=== PATIENT | male | born 1980 | race Caucasian/White ===

== ENCOUNTER 2020-09-24 11:31 | Inpatient (IN) | payer MEDICAID, OTHER, SELFPAY ==
[~2020-09-24] VITALS: Ht 175.3 cm; Wt 64.9 kg
[2020-09-24 11:32] VITALS: BP_SYST 126
--- NOTE | 2020-09-24 11:32 | NUR ---
Placed in room 06 . Placed on desk monitor, blood pressure machine and pulse oximeter. To gown for exam. Side rails up.
--- NOTE | 2020-09-24 11:35 | NUR ---
SPOKE WITH STAFF AT [facility] AND THEY COULD NOT GIVE ANY INFORMATON PERTAINING TO PTS HISTORY, DID NOT KNOW WHY PT WAS TRANSFERRED HERE. 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 ACCORDING TO BENTLEY AT [facility], PT IS NOT ACCEPTED THERE DUE TO PT HAVING A VELAZQUEZ CATHETER. CALLED BACK TO PREMA AT [facility] AND SHE STATES THAT PT DOES NOT HAVE A VELAZQUEZ, PT ARRIVED WITH VELAZQUEZ CATHETER. ALL INFORMATION SHARED WITH DR HARDY AND AWAITING CALL BACK FROM PREMA.
--- NOTE | 2020-09-24 11:45 | NUR ---
Patient presents to ER in an unclear situation. biofuels production associate attempting to speak with care facility who transferred him. Patient is irritable and not answering questions. Refusing to take clothes off and speaking "in tongues" randomly shouting words in no understandable language. Patient noted to have a flattened scrotum and a workman catheter tied in a knot without a bag. Also noted to have several wounds on BLE and soiled dressings. Ostomy pink but open to air with no bag and small feces falling out of clothing when transfered to bed. EB=[id number]. MD to assess momentarily.
--- NOTE | 2020-09-24 11:46 | NUR ---
ER at bedside examining patient.
[2020-09-24] MEDS ORDERED: cefTRIAXone 1 GM in D5W 50 ML IV ONE (12:15)
[2020-09-24] MEDS ORDERED: NACL 0.9% 1,000 ML IV ONE ×4 (12:15→13:15)
--- NOTE | 2020-09-24 12:20 | NUR ---
Labs drawn via PICC line on LUE including blood cultures. Urine specimen obtained after untied workman and placing a bag.
[2020-09-24] MEDS ORDERED: cefTRIAXone 1 GM VIAL ONE (12:24)
[2020-09-24 12:31] LABS: BILIRUBIN,URINE NEGATIVE (NEGATIVE); BLOOD, URINE 2+ (NEGATIVE); CLARITY/URINE CLOUDY (CLEAR); COLOR,URINE YELLOW (YELLOW); GLUCOSE,URINE NEGATIVE (NEGATIVE); KETONES,URINE 1+ (NEGATIVE); LEUKOCYTE ESTERASE ,URINE 2+ (NEGATIVE); NITRITE, URINE POSITIVE (NEGATIVE); PROTEIN URINE 2+ (NEGATIVE); UROBILINOGEN,URINE 0.2 (0.2-1.0)
[2020-09-24 12:31] LABS: BASOPHILS # (AUTO) 0.1 K/uL (0.0-0.2); BASOPHILS % (AUTO) 0.6 % (0.0-2.0); EOSINOPHILS # (AUTO) 0.1 K/uL (0.0-0.4); EOSINOPHILS % (AUTO) 0.7 % (0.0-4.0); HEMOGLOBIN 11.1 g/dL (14.0-18.0); LYMPHOCYTES # (AUTO) 1.3 K/uL (1.0-5.5); LYMPHOCYTES % (AUTO) 10.4 % (20.5-51.5); MEAN CORPUSCULAR HEMOGLOBIN 26 pg (27-31); MEAN CORPUSCULAR HGB CONC 33 % (32-36); MEAN CORPUSCULAR VOLUME 81 fL (79.0-98.0); MONOCYTES % (AUTO) 7.8 % (1.7-9.3); NEUTROPHILS # (AUTO) 10.1 K/uL (1.8-7.7); NEUTROPHILS % (AUTO) 80.5 % (40.0-70.0); PLATELET COUNT (AUTO) 477 K/uL (130-430); RED BLOOD CELL COUNT(AUTO) 4.22 MIL/uL (4.2-6.2); WHITE BLOOD COUNT (AUTO) 12.5 K/uL (4.8-10.8)
[2020-09-24 12:39] LABS: CALCIUM 8.5 mg/dL (8.4-11.0); CREATININE 0.7 mg/dL (0.55-1.30); POTASSIUM 3.7 mmol/L (3.5-5.1)
[2020-09-24 12:44] LABS: BACTERIA,URINE MANY /HPF (None Seen)
[2020-09-24 12:45] LABS: ALBUMIN 2.9 g/dL (3.4-4.8); TOTAL BILIRUBIN 0.3 mg/dL (0.0-1.0)
[2020-09-24 12:45] LABS: TRIPLE PHOSPHATE CRYSTAL,UR 0-10 /HPF (None Seen); WBC,URINE >100 /HPF (0-3)
[2020-09-24 12:47] LABS: BARBITURATE, URINE NEGATIVE (NEG <=200); BENZODIAZEPINE, URINE POSITIVE (NEG <=150); CANNABINOID, URINE POSITIVE (NEG <=50); COCAINE, URINE NEGATIVE (NEG <=150); METHAMPHETAMINES SCREEN,URINE NEGATIVE (NEG <=500); OPIATE, URINE POSITIVE (NEG <=100); PHENCYCLIDINE SCREEN,URINE NEGATIVE (NEG <=25); UR TRICYCLIC ANTIDEPRESSANTS NEGATIVE (NEG <=300); URINE AMPHETAMINE NEGATIVE (NEG <=500); URINE METHADONE NEGATIVE (NEG <=200); URINE OXYCODONE SCREEN NEGATIVE (NEG <=100); URINE PROPOXYPHENE SCREEN NEGATIVE (NEG <=300)
[2020-09-24] MEDS ORDERED: ONDANSETRON HCL 4 MG/2 ML VIAL ONE (13:18)
[2020-09-24] MEDS ORDERED: ONDANSETRON HCL 4 MG/2 ML VIAL IVP ONE (13:30)
[2020-09-24] MEDS ORDERED: HALOPERIDOL LACTATE 5 MG/ML VIAL IVP ONE (13:45)
--- NOTE | 2020-09-24 13:45 | NUR ---
Pt resting in [facility] at this time, no distress, refusing COVID swab at this time
--- NOTE | 2020-09-24 15:48 | NUR ---
Telemetry unit called and stated Line Haul Driver said to have ER hold the pt until cocktail lounge manager due to need to call in an extra nurse. Stating it would take too long to call in the surety bond agent nurse, and to keep pt in ER until change of shift.
--- NOTE | 2020-09-24 16:17 | NUR ---
Pt told he is NPO per MD order, found to be eating an orange he brought from home in [facility]
--- NOTE | 2020-09-24 17:10 | NUR ---
Patient will be admitted to care of Yadira. Admitted to Tele unit. Will go to room 126. Belongings list completed. Complete and up to date summary report printed. SBAR report to be given at bedside with opportunity for questions.
--- NOTE | 2020-09-24 17:25 | NUR ---
CONSULTATION PAGED REASON FOR CONSULTATION:PSYCHOSIS WAS CONSULT CALLED?Y PERSON WHO WAS NOTIFIED:MEEK CONSULTING PHYSICIAN:ROBIN CASTILLO TRANSITION LEAD SPECIALTY:PSYCH TRANSITION LEAD PHONE NUMBER:[phone] REQUESTING PHYSICIAN:RYAN BERNARDO
[2020-09-24] MEDS ORDERED: ACETAMINOPHEN 325 MG TABLET PO PRN (17:30)
[2020-09-24] MEDS ORDERED: ONDANSETRON HCL 4 MG/2 ML VIAL IVP PRN (17:30)
[2020-09-24] MEDS ORDERED: METOCLOPRAMIDE HCL 10 MG/2 ML VIAL IVP PRN (17:30)
--- NOTE | 2020-09-24 17:35 | NUR ---
receeived pt from, er. for pyelonepritis and acute psychosis under dr harman. pt is aao. vitals wnl, no fever. Addendum: 09/24/20 at 1953 by Itz Medellin RN NOTED THAT PT CAME IN WITH VELAZQUEZ CATH AND LEFT UPPER ARM PICC ( PER REPORT FROM ER, PT HAS BOTH WHEN RECEIVED IN E.R.)
[2020-09-24] MEDS ORDERED: PIPERACILLIN/TAZO 3.375/DEX-IS 50 ML IV SCH (18:00)
[2020-09-24] MEDS: MORPHINE 4 MG/ML INJ. SYRINGE IVP PRN (18:32)
[2020-09-24] MEDS: D5NS 1,000 ML IV SCH (18:39)
--- NOTE | 2020-09-24 19:40 | NUR ---
initial notes: pt is awake, alert, oriented x2. not distress, no complain of pain at this time, stable vital sign. pt has picc line to left upper arm- dressing is intact, due for change. pt has multiple abdominal scar. pt has left lower colostomy- stoma is pink. workman catheter draining to cloud yellow urine. pt has multiple wound to buttocks and both lower extremities. limited photo taken due pt is uncooperative to turn. needs attended, call light in reach. side rails up. low bed position. bed alarm on. bed lock. will follow-up
--- NOTE | 2020-09-24 19:47 | NUR ---
PT ENDORSED TO NIGHT RN BLAS. ENDORSED THAT THIS RN SPOKE TO PT'S [facility] AND REQUESTED THEM TO FAX TO US PT'S MEDICAL RECORDS AND MEDICATION LIST. ALSO ENDORSED THAT PT HAS NOT BEEN ADMITTED.
[2020-09-24 20:33] VITALS: BP_SYST 98
--- NOTE | 2020-09-24 21:07 | NUR ---
pt is refusing covid rapid test and mrsa nares swab. explain the importance.pt still refused.
--- NOTE | 2020-09-24 22:26 | NUR ---
call dr. johnson covering for dr. harman. inform md pt had an allergy to PCN, and they held the zosyn, but ER gave pt 1 gm of rocephine. no sign of allergic reaction. md order rocephine 1 gm every 12 hr starting tomorrow am. Addendum: 09/24/20 at 2229 by Edwin Saleh RN md discontinue zosyn.
[2020-09-24] MEDS: MORPHINE 2 MG/ML INJ. SYRINGE IVP PRN (22:39)
--- NOTE | 2020-09-24 23:15 | NUR ---
picc line dressing change done. pt tolerate well.
--- NOTE | 2020-09-25 00:30 | NUR ---
sleeping, comfortable. stable vital sign, no pain, not distress, safety precaution in place.
[2020-09-25 01:56] VITALS: BP_SYST 107
[2020-09-25] MEDS ORDERED: ONDA4TAB5 PO (02:03)
[2020-09-25] MEDS ORDERED: LORA-259 PO (02:03)
[2020-09-25] MEDS ORDERED: PERC10 PO (02:03)
[2020-09-25] MEDS ORDERED: DOCU-156 PO (02:03)
[2020-09-25] MEDS ORDERED: DIPH25CA83 PO (02:03)
[2020-09-25] MEDS ORDERED: APIX5TAB4 PO (02:03)
[2020-09-25] MEDS ORDERED: PARO-63 PO (02:03)
[2020-09-25] MEDS ORDERED: FAMO40TA7 PO (02:03)
[2020-09-25] MEDS: D5NS 1,000 ML IV SCH ×3 (03:15→22:42)
[2020-09-25] MEDS: MORPHINE 2 MG/ML INJ. SYRINGE IVP PRN (03:34)
--- NOTE | 2020-09-25 06:52 | NUR ---
closing: pt is sleeping, comfortable, no sign of distress, no sob, stable. ivf infusing well. needs attended the whole shift. call light with the pt. side rails up. low bed position. bed alarm on. will give sbar reporting to am rn.
--- NOTE | 2020-09-25 07:10 | NUR ---
opening note Received sbar from night RN, patient in bed, respirations even, non labored, bed in low and locked position call light within reach,
--- NOTE | 2020-09-25 07:31 | NUR ---
Nutrition Update Tarun Scale 17 noted. Pt admitted for Pyelonephritis, Acute Psychosis Diet: Regular BMI: 21.1 kg/m2 RD to follow per nutrition care standards.
[2020-09-25 08:00] VITALS: BP_SYST 114
--- NOTE | 2020-09-25 08:10 | NUR ---
nurse note patient becoming agitated, yelling, threatening to leave, stating that he needs his pain medication, calmed patient down, obtained vs,
[2020-09-25] MEDS: MORPHINE 4 MG/ML INJ. SYRINGE IVP PRN ×4 (08:45→21:14)
--- NOTE | 2020-09-25 11:02 | NUR ---
rounds Dr May bedside examining patient
[2020-09-25] MEDS ORDERED: ONDANSETRON 4 MG ODT TAB PO PRN (11:15)
--- NOTE | 2020-09-25 11:16 | NUR ---
CONSULTATION PAGED/CALLED Reason for Consultation: [] UTI Person Who was Notified: [] [place] Consulting Physician: [] DR FRANCO Ncqa Specialist Specialty: [] ID Ordering Physician: [] DR ERICKSON
--- NOTE | 2020-09-25 11:23 | NUR ---
ct scan patient off floor via wheel chair for ct scan
[2020-09-25] MEDS ORDERED: APIXABAN 2.5 MG TABLET PO ONE (11:30)
[2020-09-25] MEDS ORDERED: PARoxetine HCL 20 MG TABLET PO ONE (11:30)
[2020-09-25] MEDS: cefTRIAXone 1 GM in D5W 50 ML IV SCH ×2 (12:09→23:22)
[2020-09-25] MEDS ORDERED: APIXABAN 2.5 MG TABLET ONE (12:09)
--- NOTE | 2020-09-25 12:10 | NUR ---
nurse note patient requesting pain medication, 02/12.
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
--- NOTE | 2020-09-25 12:31 | NUR ---
wound care wound care provided see mst shift assessment Addendum: 09/25/20 at 1517 by Graham Aponte RN wound care with KENTON Stein, measurements taken
[2020-09-25 12:36] VITALS: BP_SYST 141
--- NOTE | 2020-09-25 12:37 | NUR ---
md rounds dr Sanchez bedside examining patient
[2020-09-25] MEDS ORDERED: QUEtiapine FUMARATE 25 MG TABLET PO ONE (14:00)
[2020-09-25] MEDS ORDERED: HALOPERIDOL LACTATE 5 MG/ML VIAL IM PRN (14:00)
[2020-09-25] MEDS ORDERED: NICOTINE 21 MG/24 HR PATCH.TD24 TD ONE (14:00)
--- NOTE | 2020-09-25 14:30 | NUR ---
nurse note patient complaining of anxiety, feels jumpy and irritable, provided medication
[2020-09-25] MEDS: LORazepam 1 MG TABLET PO PRN (14:39)
[2020-09-25] MEDS: VANCOMYCIN HCL 750 MG in NS 250 ML IV SCH ×3 (14:40→21:03)
--- NOTE | 2020-09-25 14:40 | NUR ---
nurse note administering medications, patient refuses to take vancomycin with out benadryl ivp, paged Dr. Sanchez to inform him
--- NOTE | 2020-09-25 15:13 | NUR ---
2ND CALL TO ID MD DR FRANCO, RE: PT REFUSES VANCO WITHOUT GETTING BENADRYL WITH IT. SPOKE TO [place]
--- NOTE | 2020-09-25 15:44 | NUR ---
Patient stated he wants to go home to [place], [place], where he rents a room. He asked me to call his brother Eric Chavez concerning this plan. Spoke w/ patient's brother-he stated the patient cannot care for himself and he could not come home to [place] because he could not help take care of him. He requested the patient return to a SNF when medically stable.
[2020-09-25 16:08] VITALS: BP_SYST 150
[2020-09-25] MEDS ORDERED: DIPHENHYDRAMINE INJ 50 MG/ML VIAL IVP ONE (16:30)
--- NOTE | 2020-09-25 16:40 | NUR ---
nurse note entered patients room, patient sitting in wheel chair, workman removed and lying on floor, blood on floor, patient states he does not know what happened. informed charge entry clerk of incident and she went to room to assess patient
--- NOTE | 2020-09-25 17:15 | NUR ---
VELAZQUEZ CATH: # 16 FR Velazquez catheter with 10cc bulb inserted with use of sterile technique. Bulb inflated with 10 cc sterile water. Immediate return of urine noted. Bedside drainage bag placed below level of bladder. Pt tolerated procedure well.
--- NOTE | 2020-09-25 17:20 | NUR ---
nurse note ostomy bag became detached, replaced with new bag, patient tolerated well
--- NOTE | 2020-09-25 17:45 | NUR ---
nurse note provided wound care to left foot and leg, and right foot, patient refused any further wound care treatment done
--- NOTE | 2020-09-25 18:10 | NUR ---
picc line stopped ivf's iv is leaking. no signs of infiltration, patient states no pain to the area
--- NOTE | 2020-09-25 19:15 | NUR ---
OPENING NOTE RECEIVED CARE OF PT AND SBAR REPORT. PT IS IN WHEELCHAIR AT NURSES STATION. BREATHING IS UNLABORED TO ROOM AIR, NO S/S OF ACUTE DISTRESS NOTED. PLAN OF CARE DISCUSSED WITH PT. SAFETY MAINTAINED. WILL MONITOR.
--- NOTE | 2020-09-25 19:15 | NUR ---
closing note Provided SBR to night RN, patient wheel chair, respirations even, non labored, endorsed IV Vanco to night RN in addition to wound care that patient refused. Informed RN that IV is leaking. endorsed care to night RN
[2020-09-25] MEDS: OXYCODONE/ACETAMINOPHEN *10*mg/325 mg TABLET PO PRN ×2 (19:26→23:43)
[2020-09-25 20:00] VITALS: BP_SYST 148
[2020-09-25] MEDS: DIPHENHYDRAMINE INJ 50 MG/ML VIAL IVP SCH (21:03)
[2020-09-25] MEDS: QUEtiapine FUMARATE 25 MG TABLET PO SCH (21:03)
[2020-09-25] MEDS: FAMOTIDINE 20 MG TABLET PO SCH (21:03)
[2020-09-25] MEDS: APIXABAN 2.5 MG TABLET PO SCH (21:15)
--- NOTE | 2020-09-26 | NUR ---
RN ROUNDS: Patient is laying in bed and appears to be asleep. He is not exhibiting any s/s of distress or discomfort. Will continue to monitor. Addendum: 09/27/20 at 0300 by Renata Rose RN ADDENDUM TO DATE/ACCIDENTALLY CHANGED DATE. TRUE DATE IS 09/27/2020
[2020-09-26 00:12] VITALS: BP_SYST 109
[2020-09-26] MEDS: MORPHINE 4 MG/ML INJ. SYRINGE IVP PRN ×4 (01:54→15:24)
[2020-09-26] MEDS: DIPHENHYDRAMINE INJ 50 MG/ML VIAL IVP SCH ×3 (05:55→23:12)
[2020-09-26] MEDS: VANCOMYCIN HCL 750 MG in NS 250 ML IV SCH (05:56)
--- NOTE | 2020-09-26 06:33 | NUR ---
CLOSING NOTE PT IS RESTING IN BED, NO S/S OF ACUTE DISTRESS NOTED, IV VANCOMYCIN IS INFUSING ORDERED TO PICC LINE. THROUGHOUT SHIFT PATIENT HAS BEEN DISCONNECTING HIMSELF FROM THE IV DESPITE EDUCATION AND REDIRECTION. PATIENT MEDICATED FOR PAIN THROUGHOUT SHIFT. BREATHING IS UNLABORED TO ROOM AIR. VELAZQUEZ CATHETER IS INTACT AND DRAINING TO GRAVITY. SAFETY PRECAUTIONS MAINTAINED. BED IS LOCKED AT THE LOWEST LEVEL. CALL LIGHT IS WITH PT. WILL CONTINUE TO MONITOR UNTIL PT CARE IS ENDORSED TO DAY SHIFT RN.
--- NOTE | 2020-09-26 07:40 | NUR ---
OPENING NOTES: RECEIVED REPORT FROM BLOCKING MACHINE OPERATOR NURSE. PATIENT IS AWAKE, ALERT LAYING DOWN IN BED. PATIENT IS TOLERATING OXYGEN ON ROOM AIR WITH NO DISTRESS NOTED. IV LINE PATENT AND INTACT WITH NO INFILTRATION NOTED. PATIENT IN STABLE CONDITION. SAFETY, FALL, AND ASPIRATION PRECAUTIONS ARE IN PLACE. BED LOCKED IN LOWEST POSITION AND CALL LIGHT IN REACH. WILL CONTINUE TO MONITOR PATIENT FOR ANY CHANGES.
[2020-09-26 08:00] VITALS: BP_SYST 122
--- NOTE | 2020-09-26 08:00 | NUR ---
PATIENT NON-COMPLIANT WITH CARE WHILE DOING ROUNDS. FOOD TRAY IS ON THE FLOOR DOES NOT WANT TO BE HELP AND MAD IF TRYING TO HELP HIM. DISCONNECT HIS IV, EXPLAINED TO HIM THE IMPORTANCE AND THE INFECTION ISSUE, VERBALIZED UNDERSTANDING.
[2020-09-26] MEDS: NICOTINE 21 MG/24 HR PATCH.TD24 TD SCH (09:14)
[2020-09-26] MEDS: QUEtiapine FUMARATE 25 MG TABLET PO SCH ×2 (09:15→20:55)
[2020-09-26] MEDS: PARoxetine HCL 20 MG TABLET PO SCH (09:15)
[2020-09-26] MEDS: APIXABAN 2.5 MG TABLET PO SCH ×2 (09:20→20:54)
[2020-09-26] MEDS: D5NS 1,000 ML IV SCH ×2 (09:30→19:30)
--- NOTE | 2020-09-26 11:03 | NUR ---
CONSULTATION PAGED/CALLED Reason for Consultation: debridement Person Who was Notified: Chanelle Consulting Physician: Omega Buchanan Yolk Spray Drier Specialty: Ordering Physician: Hali May
[2020-09-26] MEDS: cefTRIAXone 1 GM in D5W 50 ML IV SCH (12:00)
--- NOTE | 2020-09-26 12:03 | NUR ---
PATIENT REFUSED IV ANTIBIOTIC MEDICATION. EXPLAINED THE RISK AND BENEFITS. VERBALIZED UNDERSTANDING.
--- NOTE | 2020-09-26 12:04 | NUR ---
Dietitian Recommendations *Recommend: double portions of meat and vegetables, add Farrukh BID. Modular will provide additional 192 Kcal and 5gm protein daily. *Recommend: continue regular diet. Please see Nutritional Assessment for details THOMAS PALACIOS
--- NOTE | 2020-09-26 12:20 | NUR ---
RECEIVED A CALL FROM PATIENT'S BROTHER (LETTY) AND WANTS TO TALK TO THE PATIENT. RELAY THE MESSAGE TO THE PATIENT AND TOLD ME THAT HE WILL CALL HIS BROTHER LATER.
[2020-09-26 12:26] VITALS: BP_SYST 146
[2020-09-26 13:41] LABS: ALBUMIN 2.6 g/dL (3.4-4.8); CALCIUM 7.8 mg/dL (8.4-11.0); CREATININE 0.62 mg/dL (0.55-1.30); POTASSIUM 3.6 mmol/L (3.5-5.1); TOTAL BILIRUBIN 0.2 mg/dL (0.0-1.0)
[2020-09-26] MEDS: VANCOMYCIN HCL 1.25 GM/NS 250 ML IV SCH ×2 (15:28→23:13)
--- NOTE | 2020-09-26 15:51 | NUR ---
RECEIVED A CALL FROM LAB REGARDING PATIENT'S URINE CULTURE POSITIVE OF E.COLI (MDRO URINE).
[2020-09-26] MEDS: LORazepam 1 MG TABLET PO PRN (16:05)
[2020-09-26 16:06] VITALS: BP_SYST 123
--- NOTE | 2020-09-26 18:37 | NUR ---
CLOSING NOTES: PATIENT IS AWAKE, ALERT LAYING DOWN IN BED. PATIENT IS TOLERATING OXYGEN ON ROOM AIR WITH NO DISTRESS NOTED. IV LINE PATENT AND INTACT WITH NO INFILTRATION NOTED. COLOSTOMY BAG INTACT. PATIENT IN STABLE CONDITION. SAFETY, FALL, AND ASPIRATION PRECAUTIONS REMAINED IN PLACE. BED LOCKED IN LOWEST POSITION AND CALL LIGHT IN REACH. WILL ENDORSE PATIENT CARE TO ONCOMING STAFF PHYSICIAN NURSE.
--- NOTE | 2020-09-26 19:30 | NUR ---
OPENING NOTES: Received report from dayshift nurse. Patient is laying in bed, awake and alert with no s/s of distress or discomfort. He is on room air, tolerating well. PICC line noted on left upper arm with dry and intact dressing. Patient has kerlix on bilateral lower extremities. Crespo catheter draining to gravity with no urine output at this time. Colostomy noted on left abdomen. Ensured all safety precautions. Bed is locked and in the lowest position, call light within reach.
[2020-09-26 20:00] VITALS: BP_SYST 137
--- NOTE | 2020-09-26 20:50 | NUR ---
MEDICATION ADMINISTRATION: Patient is sitting in wheel chair with no s/s of distress or discomfort. He requested Morphine for bilateral foot pain 12/13. Medications were administered as ordered by MD. Patient tolerated well.
[2020-09-26] MEDS: FAMOTIDINE 20 MG TABLET PO SCH (20:54)
--- NOTE | 2020-09-26 21:00 | NUR ---
PATIENT REFUSED IV FLUIDS AND SEROQUEL
[2020-09-26] MEDS: MORPHINE 2 MG/ML INJ. SYRINGE IVP PRN (21:04)
--- NOTE | 2020-09-26 23:00 | NUR ---
PATIENT DECLINED WOUND CARE Despite education, pt declined woundcare. States he does not want to have it done.
[2020-09-27] VITALS: BP_SYST 125
--- NOTE | 2020-09-27 | NUR ---
RN ROUNDS: Patient is laying in bed and appears to be asleep. He is not exhibiting any s/s of distress or discomfort. Will continue to monitor.
[2020-09-27] MEDS: cefTRIAXone 1 GM in D5W 50 ML IV SCH ×2 (01:13→12:27)
--- NOTE | 2020-09-27 03:01 | NUR ---
RN ROUNDS: Patient is laying in bed with no s/s of distress or discomfort. Will continue to monitor.
[2020-09-27] MEDS: D5NS 1,000 ML IV SCH ×2 (06:44→15:30)
[2020-09-27] MEDS: VANCOMYCIN HCL 1.25 GM/NS 250 ML IV SCH ×3 (06:45→22:58)
[2020-09-27] MEDS: DIPHENHYDRAMINE INJ 50 MG/ML VIAL IVP SCH ×3 (06:45→22:56)
[2020-09-27] MEDS: MORPHINE 2 MG/ML INJ. SYRINGE IVP PRN (06:47)
--- NOTE | 2020-09-27 07:35 | NUR ---
CLOSING NOTES: Patient is laying in bed, awake and alert with no s/s of distress or discomfort. He is on room air, tolerating well. PICC on left upper arm patent and intact. Patient refused wound care throughout shift. Crespo catheter draining to gravity with yellow, clear urine. Colostomy left abdomen which patient refused to let me empty, he stated he does it himself. Patient transfers to wheel chair without assistance and was found in wheel chair several times throughout shift. Ensured all safety precautions. Bed is locked and in the lowest position, call light within reach. All needs were met throughout shift. I have endorse care to dayshift nurse.
[2020-09-27 08:00] VITALS: BP_SYST 131
[2020-09-27] MEDS: QUEtiapine FUMARATE 25 MG TABLET PO SCH ×2 (08:20→22:55)
[2020-09-27] MEDS: PARoxetine HCL 20 MG TABLET PO SCH (08:20)
[2020-09-27] MEDS: OXYCODONE/ACETAMINOPHEN *10*mg/325 mg TABLET PO PRN ×2 (08:21→12:26)
[2020-09-27] MEDS: APIXABAN 2.5 MG TABLET PO SCH ×2 (08:28→20:59)
--- NOTE | 2020-09-27 12:18 | NUR ---
Discharge Planning: DCP faxed pt referral to [facility] ([phone]) DCP to follow mup. Addendum: 09/27/20 at 1409 by Lorene Fierro DP DCP followed up with Figueroa at [facility] ([phone]) patients isolation is an issue, patient room with 3 other residents. Figueroa will speak to DON to find a room. DCP will follow up
[2020-09-27] MEDS: NICOTINE 21 MG/24 HR PATCH.TD24 TD SCH (12:43)
[2020-09-27 12:47] VITALS: BP_SYST 98
[2020-09-27] MEDS: MORPHINE 4 MG/ML INJ. SYRINGE IVP PRN ×2 (15:26→20:58)
[2020-09-27 16:00] VITALS: BP_SYST 133
--- NOTE | 2020-09-27 16:30 | NUR ---
Spoke w/ [facility] extended Care-they will not have an isolation bed for the patient until tomorrow. I notified the patient he will be discharged tomorrow, he agreed to the DC plan.
--- NOTE | 2020-09-27 19:45 | NUR ---
OPENING NOTE Received patient awake, sitting on his wheel chair infront of the board/wall. He is AOX2, knows name and partial (forgot year). His bed has two meal trays on it and he said don't touch, leave them there he will eat his food. Crespo catheter drainage bag is hanging to gravity on side of chair; the clip is bent it isn't locked. There are puddles of urine throughout the room.
[2020-09-27 20:15] VITALS: BP_SYST 138
--- NOTE | 2020-09-27 20:58 | NUR ---
Pain med Patient is reporting generalized pain; 10/10 and Morphine 4mg given.
[2020-09-27] MEDS: FAMOTIDINE 20 MG TABLET PO SCH (20:59)
[2020-09-27 21:01] LABS: ALBUMIN 3.2 g/dL (3.4-4.8); CALCIUM 8.8 mg/dL (8.4-11.0); CREATININE 0.7 mg/dL (0.55-1.30); POTASSIUM 4.1 mmol/L (3.5-5.1); TOTAL BILIRUBIN 0.3 mg/dL (0.0-1.0)
[2020-09-27 21:22] LABS: MEAN CORPUSCULAR HEMOGLOBIN 27 pg (27-31); MEAN CORPUSCULAR HGB CONC 32 % (32-36); MEAN CORPUSCULAR VOLUME 82 fL (79.0-98.0); WHITE BLOOD COUNT (AUTO) 9.6 K/uL (4.8-10.8)
[2020-09-27 21:28] LABS: BASOPHILS # (AUTO) 0.1 K/uL (0.0-0.2); BASOPHILS % (AUTO) 0.6 % (0.0-2.0); EOSINOPHILS # (AUTO) 0.1 K/uL (0.0-0.4); EOSINOPHILS % (AUTO) 1.4 % (0.0-4.0); HEMATOCRIT 35.3 % (36-54); HEMOGLOBIN 11.4 g/dL (14.0-18.0); LYMPHOCYTES # (AUTO) 1.3 K/uL (1.0-5.5); LYMPHOCYTES % (AUTO) 13.6 % (20.5-51.5); MONOCYTES # (AUTO) 0.8 K/uL (0.0-1.0); MONOCYTES % (AUTO) 8.7 % (1.7-9.3); NEUTROPHILS # (AUTO) 7.3 K/uL (1.8-7.7); NEUTROPHILS % (AUTO) 75.7 % (40.0-70.0); PLATELET COUNT (AUTO) 360 K/uL (130-430); RED BLOOD CELL COUNT(AUTO) 4.29 MIL/uL (4.2-6.2); RED CELL DISTRIBUTION WIDTH 15.7 % (9.0-15.0)
--- NOTE | 2020-09-27 22:58 | NUR ---
[place] Patient is wandering all over room and at times tries to go in hallway and he is sent back in room; He has refused IVF. I informed he needs antibiotic and I will need to connect IV and he agreed, but wants to take machine by the door, so he can see hallway.
[2020-09-28] MEDS: cefTRIAXone 1 GM in D5W 50 ML IV SCH ×2 (00:59→11:47)
[2020-09-28] MEDS: MORPHINE 2 MG/ML INJ. SYRINGE IVP PRN ×2 (01:06→11:12)
--- NOTE | 2020-09-28 01:13 | NUR ---
Pain med, antibiotic Patient was sitting on wheel chair in his room next to door way. No distress, non labored breathing and no facial grimacing. Rocephin due and administered, he was cooperative. He requested Morphine for pain, generalized and morphine for moderate pain given. WCTM.
[2020-09-28] MEDS: D5NS 1,000 ML IV SCH ×2 (01:30→11:12)
[2020-09-28] MEDS: LORazepam 1 MG TABLET PO PRN ×2 (01:45→12:45)
--- NOTE | 2020-09-28 01:46 | NUR ---
Ativan Patient is sitting on his wheelchair by the door. He got restless, threw a fork across the hallway. He pulled on IV, rolled/tangled tubing in hand and said he wants Benadry. I informed not due yet and then he said wants pain med, I formed he already received it and he replied I don't know how to tell time. He said I need my med... I told him I got Ativan, an he immediately said yes, he will have ativan.
--- NOTE | 2020-09-28 02:29 | NUR ---
Pulled out call light from wall Cord out alarm set off. Patient pulled out two call light cords, I entered room and he said he was fixing the electrical system. I asked not to touch the cords, he did not let me get the cords, he insisted he'll get it. I watched him and outlets were safely plugged in correct outlet.
--- NOTE | 2020-09-28 06:00 | NUR ---
resting in bed resting quietly in bed, no distress, symmetrical rise and fall of chest
[2020-09-28] MEDS: DIPHENHYDRAMINE INJ 50 MG/ML VIAL IVP SCH ×2 (06:53→14:00)
[2020-09-28] MEDS: MORPHINE 4 MG/ML INJ. SYRINGE IVP PRN (06:55)
--- NOTE | 2020-09-28 06:55 | NUR ---
meds Unable to give Vanco; it is not available. Administered benadryl and morphine; Midline leaks; pushed med slowly to avoid loss of med/NS. Will endorse care.
[2020-09-28] MEDS: NICOTINE 21 MG/24 HR PATCH.TD24 TD SCH (09:00)
[2020-09-28] MEDS: APIXABAN 2.5 MG TABLET PO SCH (09:00)
[2020-09-28] MEDS: QUEtiapine FUMARATE 25 MG TABLET PO SCH (09:00)
[2020-09-28] MEDS: PARoxetine HCL 20 MG TABLET PO SCH (09:00)
[2020-09-28] MEDS: VANCOMYCIN HCL 1.25 GM/NS 250 ML IV SCH ×2 (09:23→15:00)
--- NOTE | 2020-09-28 11:15 | NUR ---
Note Pt refused to let RN empty colostomy bag, stated that he (pt) would empty colostomy himself.
--- NOTE | 2020-09-28 12:15 | NUR ---
Discharge Planning: DCP followed up with Rashi at [facility] ([phone]) pt accepte dto Rm 49A, transport arranged with [facility] ([phone]) BLS 3:00pm P/U. Patient packet taken to nurses station.
[2020-09-28] MEDS: OXYCODONE/ACETAMINOPHEN *10*mg/325 mg TABLET PO PRN (12:47)
[2020-09-28 12:56] VITALS: BP_SYST 121
[2020-09-28 14:29] VITALS: BP_SYST 120
--- NOTE | 2020-09-28 15:05 | NUR ---
Discharge disposition is 03
--- NOTE | 2020-09-28 15:15 | NUR ---
Note Dr May was on the floor to assess pt at 0940am. was informed that pt refused 08am vital signs and all am medications. Pt did get into his wheelchair and came to door of room and requested Morphine IVP - was given. Pt ate all his meals and additional meals were requested and given. Pt ambulates in wheelchair in hallways. Pt went with his wheelchair to fire door/exit and set off the fire alarm. Pt was told to go back to room and security called at 1.30pm. Pt gain tried to go through fire door next to ICU. Security again called - they wiil stay near pt's door tilll ambulance comes to pick pt up at 1500. Report was given to Ami FUNG at 1320 - [facility]. Discharge packet ready at nurses' station. Pt's metal ceiling builder was given to ambulance EMT at this time to give the [facility] at 1515. Ambulance EMT came to floor at 1500 - report was given and discharge packet to given [facility].
--- NOTE | 2020-09-28 15:33 | NUR ---
Note Pt off the floor via rona and all his belongings to [facility]. Pt stable.
== END 2020-09-28 15:35 | DRG 463 ==
LOC: SED 11:31 → SMU 15:27
PROVIDERS: ADMIT Internal Medicine Hospice and Palliative Medicine; ATTEND Internal Medicine Hospice and Palliative Medicine
DX: N12 Tubulo-interstitial nephritis, not specified as acute or chronic (principal); F23 Brief psychotic disorder; G82.20 Paraplegia, unspecified; R78.81 Bacteremia; L89.529 Pressure ulcer of left ankle, unspecified stage; B96.20 Unspecified Escherichia coli [E. coli] as the cause of diseases classified elsewhere; F32.9 Major depressive disorder, single episode, unspecified; L89.899 Pressure ulcer of other site, unspecified stage; L89.159 Pressure ulcer of sacral region, unspecified stage; B95.8 Unspecified staphylococcus as the cause of diseases classified elsewhere; Z87.440 Personal history of urinary (tract) infections; Z88.0 Allergy status to penicillin; Z93.3 Colostomy status; Z71.51 Drug abuse counseling and surveillance of drug abuser
CPT/HCPCS: 36415; 76376; 80053; 80202-TC; 80307; 81000-TC; 83605; 85025; 87040-TC; 87070-TC; 87086; 87186-TC; 96365; 96375; A5061; J0696; J1200; J1630; J2270; J2405; J2543; J3370; J7030; J7042; J7050; J7060

== ENCOUNTER 2020-09-28 17:22 | Emergency (ER) | payer OTHER, MEDICAID ==
[~2020-09-28] VITALS: Ht 182.9 cm; Wt 63.5 kg
[~2020-09-28 17:22] MED LIST: APIX5TAB4 PO; DIPH25CA83 PO; DOCU-156 PO; FAMO40TA7 PO; LORA-259 PO; ONDA4TAB5 PO; PARO-63 PO; PERC10 PO
[2020-09-28 17:50] VITALS: BP_SYST 137
[2020-09-28] MEDS ORDERED: TUBERCULIN,PURIF.PROT.DERIV. 0.1 ML SYR ID ONE (22:52)
[2020-09-29] MEDS ORDERED: DIPHENHYDRAMINE INJ 50 MG/ML VIAL IM ONE
[2020-09-29] MEDS ORDERED: MORPHINE 4 MG/ML INJ. SYRINGE IM ONE ×2 (01:45)
[2020-09-29 02:25] VITALS: BP_SYST 137
== END 2020-09-29 02:25 | disposition home or self-care (01) ==
LOC: SED 17:22
DX: R53.81 Other malaise (principal); M79.18 Myalgia, other site
CPT/HCPCS: 86580; 96372; 99284; J1200; J2270 ×2